=== PATIENT | female | born 1950 | race Caucasian/White ===

== ENCOUNTER 2022-12-31 22:47 | Emergency (ER) | payer MEDICARE, OTHER, SELFPAY ==
[2022-12-31 22:57] VITALS: BP 118/54; PULSE 78; RESP 18; TEMP 36.4; BMI 23.2
[2022-12-31] MEDS: 0.9 % SODIUM CHLORIDE 1000 ml 1,000 ML IV (23:32)
[2022-12-31] MEDS: ASPIRIN 81 MG TAB.CHEW 324 MG PO (23:32)
[2022-12-31 23:46] LABS: Basophils Absolute Auto 0.01 K/uL (0.00-0.30); Basophils Percent Auto 0.1 % (0.0-3.0); Eosinophils Absolute Auto 0.01 K/uL (0.00-0.50); Eosinophils Percent Auto 0.1 % (0.0-7.0); Hematocrit 41.9 % (33.0-51.0); Hemoglobin* 13.9 gm/dL (12.0-16.0); Immature Granulocytes Abs Auto 0.08 K/uL (0.00-0.30); Lymphocytes Percent Auto 14.5 % (20-44); Mean Corpuscular HGB Conc 33 gm/dL (32-36); Mean Corpuscular Hemoglobin 31 pg (26-34); Mean Corpuscular Volume 93 fL (80-100); Monocytes Percent Auto 8.4 % (0.0-11.0); Neutrophils Percent Auto 75.9 % (42.0-72.0); Platelet Count* 249 K/uL (140-440); RDW Coefficient of Variation % 11.8 % (11.5-15.5); Red Blood Count 4.51 m/uL (4.00-5.20); White Blood Count* 7.78 K/uL (4.50-11.00)
[2022-12-31 23:51] LABS: Slide Review Reflex No
[2023-01-01] VITALS (10 sets, daily range): BP systolic 135–166; BP diastolic 58–95; PULSE 63–71; RESP 18; O2SAT 96–98
[2023-01-01] LABS: Chloride* 98 mmol/L (96-114); Potassium* 4.1 mmol/L (3.6-5.1); Sodium* 133 mmol/L (135-149)
[2023-01-01 00:03] LABS: Blood Urea Nitrogen* 17 mg/dL (7-30); Carbon Dioxide* 24 mmol/L (20-32); Creatinine* 0.6 mg/dL (0.5-1.5); Est. Creatinine Clearance* 43.91; Estimated Glomerular Filt Rate 95 ml/min; Glucose* 150 mg/dL (60-115); INR 0.96 (0.91-1.10); Partial Thromboplastin Time* 27 Seconds (23-33); Prothrombin Time 13.4 Seconds
[2023-01-01 00:04] LABS: Calcium* 9.8 mg/dL (8.4-10.6)
[2023-01-01 00:15] LABS: NT Pro B Type NatriureticPept* 214 pg/mL
--- NOTE | 2023-01-01 00:23 | PC.NURSE ---
pt needs to urinate. Ambulate to BR with steady gait. Void without diff.
[2023-01-01 00:25] LABS: PCR FLU A Negative PCR FLU A (Negative); PCR FLU B Negative PCR FLU B (Negative); PCR RSV Negative PCR RSV (Negative)
--- NOTE | 2023-01-01 00:32 | PC.NURSE ---
Wang [phone]. Pt temporary tx to D1.
[2023-01-01 00:38] LABS: SARS PCR* Negative SARS-CoV-2 (Negative)
[2023-01-01 00:41] LABS: Appearance Urine Clear (Clear); Bilirubin Urine Negative (Negative); Blood Urine 1+ (Negative); Color Urine Yellow (Yellow); Glucose Urine Negative (Negative); Ketones Urine Negative (Negative); Leukocyte Esterase Urine Trace (Negative); Nitrite Urine Negative (Negative); Protein Urine Negative (Negative); Urobilinogen Urine 0.2 (0.2-1.0)
[2023-01-01 00:55] LABS: Bacteria Urine Few; RBC Urine 0-2 (0-2); Squamous Epithelial Cell Urine Few (None-Few); WBC Urine 0-2 (0-5)
--- NOTE | 2023-01-01 01:25 | ED.SYNCOPE ---
HPI - Syncope General Date Seen: 01/01/23 Chief Complaint: Syncope/Fainted Stated Complaint: near syncope Time Seen by Provider: 12/31/22 22:52 Source: patient and family Mode of arrival: ambulatory Limitations: no limitations History of Present Illness HPI narrative: The patient is a 72-year-old female who looks younger than the stated age, she presents here with the syncopal episode this morning, she got a bed started walking, and then fell to the ground, she was out for approximately 30 seconds to a minute, attended by her , she came back around and she was able to get up by herself. She laid around today drink a lot of fluids, but still feels kind of weak/fatigue. Feeling similar to that without the actual syncopal episode occurred tonight again when she stood up and she thought it would be prudent that they should be seen. She does not have a history of previous syncopal episodes, she denies any chest pain shortness of breath feeling that her heart races, with this, she has had no fevers chills or sweats diarrhea abdominal pain coughing wheezing leg swelling, or headaches numbness and tingling or weakness. Brought in tonight for the evaluation of these issues. Denies a history of alcohol or drug use. Does have a history of a previous cardiac stent place greater than 20 years ago, right-sided mastectomy for breast cancer. Here tonight with her . complaint: loss of consciousness, almost passed out and collapsed Prodromal symptoms: none Witnessed: No Related Data Allergies Allergy/AdvReac Type Severity Reaction Status Date / Time morphine Allergy Unknown Verified 12/31/22 23:05 Review of Systems Status of ROS: Reports: 10 or more systems reviewed and unremarkable except as noted in History and below [facility] Medical History Cancer ?C80.1 - Malignant (primary) neoplasm, unspecified (ICD-10) Social History Smoking Status: Never smoker How often do you have a drink containing alcohol: never AUDIT-C Alcohol total score: 0 Non-prescribed substance use: denies use Exam Narrative: Exam Narrative: She is seen in room 8 with her , she appears to be in no apparent distress, her vital signs are normal, she is nontoxic her pupils are equal round reactive to light there is no scleral icterus or redness TMs are normal oropharynx is normal there is no adenopathy anterior or posterior change, neck is supple full range of motion with absence of meningismus is noted. Carotid upstrokes in JVP are normal chest is clear bilaterally with no wheezing crackles noted no signs of respiratory distress heart sounds are normal, with no clicks murmurs or gallops. Her abdomen is soft there is no guarding no organomegaly, no tenderness normal bowel sounds pelvis normal stable. She moves all extremities independently and well with normal power in upper lower extremities symmetrical right versus left, cranial nerves 3-12 are normal. Const: Vital Signs, click to edit/add: Vital Signs - 24 hr 12/31/22 22:57 01/01/23 00:05 01/01/23 02:27 Temperature 97.5 F L Pulse Rate Pulse Rate [Pulse Oximeter] 78 Pulse Rate [orthos tatic lying Right Pulse Oximeter] Pulse Rate [orthos tatic sitting] Pulse Rate [orthos tatic standing Rig ht Pulse Oximeter] Respiratory Rate 18 18 Blood Pressure Blood Pressure [Le ft Upper Arm] 118/54 L 161/86 H 166/58 H Blood Pressure [or thostatic lying] Blood Pressure [or thostatic sitting Left Arm] Blood Pressure [or thostatic standing ] Pulse Oximetry 97 Oxygen Delivery Me thod Room Air Room Air 01/01/23 02:29 01/01/23 02:30 01/01/23 02:56 Temperature Pulse Rate 68 68 71 Pulse Rate [Pulse Oximeter] Pulse Rate [orthos tatic lying Right Pulse Oximeter] Pulse Rate [orthos tatic sitting] Pulse Rate [orthos tatic standing Rig ht Pulse Oximeter] Respiratory Rate 18 Blood Pressure 156/88 H Blood Pressure [Le ft Upper Arm] Blood Pressure [or thostatic lying] Blood Pressure [or thostatic sitting Left Arm] Blood Pressure [or thostatic standing ] Pulse Oximetry 97 97 97 Oxygen Delivery Me thod 01/01/23 02:59 01/01/23 03:00 01/01/23 03:00 Temperature Pulse Rate 68 68 Pulse Rate [Pulse Oximeter] Pulse Rate [orthos tatic lying Right Pulse Oximeter] 65 Pulse Rate [orthos tatic sitting] 71 Pulse Rate [orthos tatic standing Rig ht Pulse Oximeter] 71 Respiratory Rate 18 Blood Pressure 141/90 H 135/86 Blood Pressure [Le ft Upper Arm] Blood Pressure [or thostatic lying] 156/88 H Blood Pressure [or thostatic sitting Left Arm] 141/90 H Blood Pressure [or thostatic standing ] 135/86 Pulse Oximetry 98 98 Oxygen Delivery Me thod 01/01/23 03:01 01/01/23 03:30 01/01/23 03:32 Temperature Pulse Rate 65 66 63 Pulse Rate [Pulse Oximeter] Pulse Rate [orthos tatic lying Right Pulse Oximeter] Pulse Rate [orthos tatic sitting] Pulse Rate [orthos tatic standing Rig ht Pulse Oximeter] Respiratory Rate Blood Pressure 158/95 H Blood Pressure [Le ft Upper Arm] Blood Pressure [or thostatic lying] Blood Pressure [or thostatic sitting Left Arm] Blood Pressure [or thostatic standing ] Pulse Oximetry 96 97 97 Oxygen Delivery Me thod Documenting provider has reviewed patient's vital signs: yes Course Reevaluation(s) Time of Reevaluation #1: 02:32 Reevaluation #1: Patient returned from [place], she remains asymptomatic, she was up walking around before she left, urinate, and felt good. My review of the CT chest, along with a CT head shows no acute findings, waiting radiological over-read. Laboratory work is reassuring, with a normal troponin, given the fact she had a syncopal episode in the a.m., 12 hours since, and she is asymptomatic with a normal EKG. This effectively rules out myocardial ischemia and infarction D-dimer was normal, in the setting of a normal chest CT. Remainder of her laboratory tests were normal. I know if she has caught some sort of a virus or bug, I think watchful waiting will be in order, returning if worsening signs and symptoms. Vital Signs Vital signs: Initial Vital Signs Temperature 97.5 F L 12/31/22 22:57 Temperature Source Temporal Artery Scan 12/31/22 22:57 Pulse Rate 78 12/31/22 22:57 Respiratory Rate 18 12/31/22 22:57 Blood Pressure 118/54 L 12/31/22 22:57 Blood Pressure Mean 75 12/31/22 22:57 Oxygen Delivery Method Room Air 12/31/22 22:57 Vital Signs Temperature 97.5 F L 12/31/22 22:57 Pulse Rate 78 12/31/22 22:57 Respiratory Rate 18 12/31/22 22:57 Blood Pressure 118/54 L 12/31/22 22:57 Oxygen Delivery Method Room Air 12/31/22 22:57 Temperature 97.5 F L 12/31/22 22:57 Pulse Rate 63 01/01/23 03:32 Respiratory Rate 18 01/01/23 03:00 Blood Pressure 158/95 H 01/01/23 03:32 Pulse Oximetry 97 01/01/23 03:32 Oxygen Delivery Method Room Air 01/01/23 02:27 MDM - Syncope MDM Narrative Medical decision making narrative: Life-threatening differential diagnosis considered include: Cardiac arrhythmia, acute blood loss, and intracranial bleed. Other differential diagnosis include but are not limited to vasovagal syncope, orthostatic syncope, seizure, as well as other etiologies Medical Records Attestation: I reviewed the patient's medical records. Lab Data Attestation: I reviewed the patient's lab results. Labs: Lab Results 12/31/22 12/31/22 Range/Units 23:27 23:28 WBC 7.78 (4.50-11.00) K/uL RBC 4.51 (4.00-5.20) m/uL Hgb 13.9 (12.0-16.0) gm/dL Hct 41.9 (33.0-51.0) % MCV 93 (80-100) fL MCH 31 (26-34) pg MCHC 33 (32-36) gm/dL RDW Coeff of Mabel 11.8 (11.5-15.5) % Plt Count 249 (140-440) K/uL Neut % (Auto) 75.9 H (42.0-72.0) % Lymph % (Auto) 14.5 L (20-44) % [place] % (Auto) 8.4 (0.0-11.0) % Eos % (Auto) 0.1 (0.0-7.0) % Baso % (Auto) 0.1 (0.0-3.0) % Neut # (Auto) 5.90 (1.7-7.0) K/uL Lymph # (Auto) 1.10 (0.90-2.90) K/uL [place] # (Auto) 0.70 (0.00-0.90) K/UL Eos # (Auto) 0.01 (0.00-0.50) K/uL Baso # (Auto) 0.01 (0.00-0.30) K/uL INR 0.96 (0.91-1.10) APTT 27 (23-33) Seconds D-Dimer Quant (PE/DVT) 0.40 (0.00-0.50) ug/ml Sodium 133 L (135-149) mmol/L Potassium 4.1 (3.6-5.1) mmol/L Chloride 98 (96-114) mmol/L Carbon Dioxide 24 (20-32) mmol/L BUN 17 (7-30) mg/dL Creatinine 0.6 (0.5-1.5) mg/dL Estimated Creat Clear 43.91 Estimated GFR 95 ml/min Glucose 150 H (60-115) mg/dL Calcium 9.8 (8.4-10.6) mg/dL NT-Pro-B Natriuret Pep 214 pg/mL Urine Color Yellow (Yellow) Urine Appearance Clear (Clear) Urine pH 7.0 (5.0-8.5) Ur Specific [place] 1.010 (1.000-1.030) Urine Protein Negative (Negative) Urine Glucose (UA) Negative (Negative) Urine Ketones Negative (Negative) Urine Blood 1+ A (Negative) Urine Nitrite Negative (Negative) Urine Bilirubin Negative (Negative) Urine Urobilinogen 0.2 (0.2-1.0) Ur Leukocyte Esterase Trace A (Negative) Urine RBC 0-2 (0-2) Urine WBC 0-2 (0-5) Ur Squamous Epith Cells Few (None-Few) Urine Bacteria Few A (None) SARS-CoV-2 (PCR) Negative SARS-CoV-2 (Negative) Influenza Type A (PCR) Negative PCR FLU A (Negative) Influenza Type B (PCR) Negative PCR FLU B (Negative) RSV (PCR) Negative PCR RSV (Negative) POC Troponin I 0.00 L (0.01-0.04) ng/ml Imaging Data CT scan - chest: Attestation: I have reviewed the pertinent imaging results. My impression: Given the history of the fall, in the thought that she may have hit her head we will order a head CT and a chest CT with IV contrast to rule out a PE, unfortunately our CT scanner broke during this time. We have to transfer the patient to [place], for head CT and a chest CT. I discussed with the patient and they are in agreement this will be done by ambulance. When she gets back I will do an ultrasound of her aorta abdominal the rule out any dilatation. ECG Data Attestation: I personally reviewed and interpreted this ECG as follows: ECG interpretation date: 12/31/22 Interpretation: Normal sinus rhythm, ventricular rate 80, some mild artifact but no appreciable ST wave changes, Discharge Plan Discharge Clinical Impression: Fatigue, Syncope Patient Disposition: Home w/ Parent or Adult Condition: Stable Instructions: Syncope (DC), Near Syncope (ED), Fatigue (ED), Syncope in Older Adults (ED) Additional Instructions: Home rest fluids, return as needed, I would change positions very slowly, to avoid having a syncopal episode. Hydration, return if chest pain shortness of breath recurrent episodes. The CT showed some mild thickening of the stomach. The Radiologist suggests follow up with your primary care doctor and consider an EGD. There is a thyroid nodule and they suggest an ultrasound. This may also be ordered by your primary care doc. Activity Level: Light activity and Up with assist Follow Up/Referrals: Provider,Not a Local [Primary Care Provider] - Stand Alone Forms: [facility] Info Instructions Procedures Ultrasound Aorta exam #1: Anatomical areas examined: abdominal aorta to bifurcation Indications: other (Syncope) Exam type: limited retroperitoneal ultrasound Findings: maximum abdominal aorta (cm) (2.9) Impression: negative exam Descriptions/Findings: Negative aortic ultrasound, images saved, no evidence of aneurysmal disease.
--- NOTE | 2023-01-01 02:19 | PC.NURSE ---
Pt return from D1. Ambulate to BR with steady gait.
--- NOTE | 2023-01-01 03:38 | ED.NURSE ---
results from CT chest and head printed from [facility] and given to MD Rey.
== END 2023-01-01 03:49 | disposition home or self-care (01) ==
PROVIDERS: Emergency Provider Family Medicine
DX: R55 Syncope and collapse (principal); R53.83 Other fatigue
CPT/HCPCS: 36415; 76705; 80048; 81001; 83880; 84484; 85025; 85379; 85610; 85730; 87086; 87631; 93005; 99284; A9270; J7030

== ENCOUNTER 2023-01-01 00:28 | Outpatient (CLI) | payer MEDICARE, OTHER, SELFPAY | END 2023-01-01 00:29 | disposition home or self-care (01) | LOC: AMB 13:25 | PROVIDERS: Visit Provider Family Medicine | DX: R55 Syncope and collapse (principal) ==

== ENCOUNTER 2023-08-28 10:11 | Emergency (ER) | payer MEDICARE, OTHER, SELFPAY ==
[2023-08-28 10:16] VITALS: BP 146/79; PULSE 104; RESP 18; TEMP 36.5; O2SAT 99; BMI 23.3
[2023-08-28 12:01] LABS: Basophils Absolute Auto 0.01 K/uL (0.00-0.30); Basophils Percent Auto 0.2 % (0.0-3.0); Eosinophils Absolute Auto 0.02 K/uL (0.00-0.50); Eosinophils Percent Auto 0.4 % (0.0-7.0); Hematocrit 41.3 % (33.0-51.0); Hemoglobin* 13.5 gm/dL (12.0-16.0); Immature Granulocytes Abs Auto 0.01 K/uL (0.00-0.30); Immature Granulocytes Pct Auto 0.2 %; Lymphocytes Percent Auto 11.1 % (20-44); Mean Corpuscular HGB Conc 33 gm/dL (32-36); Mean Corpuscular Hemoglobin 31 pg (26-34); Mean Corpuscular Volume 95 fL (80-100); Monocytes Percent Auto 8.2 % (0.0-11.0); Neutrophils Percent Auto 79.9 % (42.0-72.0); Platelet Count* 216 K/uL (140-440); RDW Coefficient of Variation % 12.2 % (11.5-15.5); Red Blood Count 4.33 m/uL (4.00-5.20); White Blood Count* 5.48 K/uL (4.50-11.00)
[2023-08-28 12:05] LABS: Slide Review Reflex No
--- NOTE | 2023-08-28 12:08 | ED.GENADULT ---
HPI - General Adult General Date Seen: 08/28/23 Chief complaint: Back Injury/Pain Stated complaint: Back pain, tingling/numbness in limbs Time Seen by Provider: 08/28/23 11:23 Source: patient, RN notes reviewed and old records reviewed Mode of arrival: ambulatory Limitations: no limitations History of Present Illness HPI narrative: Patient is a 72-year-old woman here at the recommendation of the nurse line for whole-body tingling associated with chronic back pain. She tells me that she had a fall about a year ago, she has been having problems with low back pain primarily in the left lumbar/SI area since that time. She took meloxicam for a while, took a break and then about a month ago started taking the meloxicam again. Two days ago she stopped taking it because she says she was getting bad dreams from it. She does not take any other meds pain medications. For the past couple of days she has had paresthesias in her entire body, she says they are most predominant in her legs but she feels them in her arms and torso as well. She does not have any true numbness. She specifically denies any altered sensation in the perineum or perianal area. She called the nurse line, and was advised to come to the emergency department. She does not have any focal weakness. She does not have any urinary retention or fecal incontinence. She did have 1 episode of urinary incontinence last week overnight. She has not had fevers, night sweats, unexpected weight loss. She generally gets all of her medical care in [place], but they have a town house in [place] and so she is in [place] for right now. Her last MRI was in January/here, she says that she has bulging discs in is on the wait list for an injection in September. Related Data Home Medications Medication Instructions Recorded Confirmed atorvastatin 20 mg tablet 20 mg PO QPM 08/28/23 08/28/23 fluoxetine 10 mg capsule 10 mg PO DAILY 08/28/23 08/28/23 fluoxetine 20 mg capsule 20 mg PO DAILY 08/28/23 08/28/23 latanoprost 0.005 % eye drops 1 drp ophthalmic (eye) QPM 08/28/23 08/28/23 meloxicam 15 mg tablet 15 mg PO DAILY 08/28/23 08/28/23 vit C 250 mg-vit E 90 mg-zinc 40 1 tab PO BID 08/28/23 08/28/23 mg-copper 1 [id number] capsule (PreserVision AREDS-2) Allergies Allergy/AdvReac Type Severity Reaction Status Date / Time morphine Allergy Unknown Verified 08/28/23 10:23 Review of Systems Status of ROS: Reports: 6 or more systems reviewed and unremarkable except as noted in History and below [facility] Medical History Cancer ?C80.1 - Malignant (primary) neoplasm, unspecified (ICD-10) Social History Smoking Status: Never smoker Do you use any of these nicotine containing products: None How often do you have a drink containing alcohol: never How often do you have six or more drinks on one occasion: Never AUDIT-C Alcohol total score: 0 Non-prescribed substance use: denies use Exam Narrative: Exam Narrative: Vital signs as noted above. In general, an alert, well-appearing patient. Head: Normocephalic, atraumatic. Eyes: Pupils are equal reactive. Extraocular movements are full. Conjunctivae are normal. ENT: Mucous membranes are moist. Throat is normal. Neck: Supple without lymphadenopathy. Heart: Regular rate and rhythm. No murmur or rub. Lungs: Clear bilaterally. No increased work of breathing, crackles or wheezes. Abdomen: Soft and nontender. No organomegaly. Back: Nontender to palpation. Extremities: Well perfused. No edema. No calf tenderness. Pulses intact. Neurologic: Patient is alert and oriented to person and place. Speech is fluent. Face is symmetric. Moves all extremities equally. Strength is 5 of 5 in upper and lower extremities. Sensation is intact to light touch. Affect: Normal. Skin: Warm and dry. Well perfused. Const: Vital Signs, click to edit/add: Vital Signs - 24 hr 08/28/23 10:16 08/28/23 12:16 Temperature 97.7 F Pulse Rate [Pulse Oximeter] 104 H 70 Respiratory Rate 18 18 Blood Pressure [Ri ght Upper Arm] 146/79 H 147/86 H Pulse Oximetry 99 97 Oxygen Delivery Me thod Room Air Room Air Course Course ED Course: Overall, I do not see any red flags suggesting she needs emergent imaging of her lumbar spine. She has whole body paresthesias which does not sound like something that I would attribute to low back pain. She does not have any symptoms suggestive of cauda equinus syndrome. Her neurologic exam is normal. I did recommend we check a few basic labs and make sure that her body paresthesias are not related to some other cause such as electrolyte abnormalities. Will check a COVID swab as well. She declines need for anything for pain right now. Labs here are normal, white blood cell count is 5.5, hemoglobin 13.5. Electrolytes, BUN creatinine all normal, LFTs unremarkable. CRP is less than 0.5, COVID negative. She feels reassured by all this. She does acknowledge significant anxiety about her back and wonders if that may be contributing to her symptoms. Certainly a possibility. Discussed with her that I think a trial of prednisone is reasonable, would have her follow up with primary care if not improving or if other concerns develop. For more serious symptoms such as fecal incontinence, urinary retention, fevers or focal weakness return to the emergency department. Vital Signs Vital signs: Initial Vital Signs Temperature 97.7 F 08/28/23 10:16 Temperature Source Temporal Artery Scan 08/28/23 10:16 Pulse Rate 104 H 08/28/23 10:16 Respiratory Rate 18 08/28/23 10:16 Blood Pressure 146/79 H 08/28/23 10:16 Blood Pressure Mean 101 08/28/23 10:16 Blood Pressure Position Sitting 08/28/23 10:16 Pulse Oximetry 99 08/28/23 10:16 Oxygen Delivery Method Room Air 08/28/23 10:16 Vital Signs Temperature 97.7 F 08/28/23 10:16 Pulse Rate 104 H 08/28/23 10:16 Respiratory Rate 18 08/28/23 10:16 Blood Pressure 146/79 H 08/28/23 10:16 Pulse Oximetry 99 08/28/23 10:16 Oxygen Delivery Method Room Air 08/28/23 10:16 Temperature 97.7 F 08/28/23 10:16 Pulse Rate 70 08/28/23 12:16 Respiratory Rate 18 08/28/23 12:16 Blood Pressure 147/86 H 08/28/23 12:16 Pulse Oximetry 97 08/28/23 12:16 Oxygen Delivery Method Room Air 08/28/23 12:16 Medical Decision Making Lab Data Labs: Lab Results 08/28/23 08/28/23 Range/Units 11:44 11:45 WBC 5.48 (4.50-11.00) K/uL RBC 4.33 (4.00-5.20) m/uL Hgb 13.5 (12.0-16.0) gm/dL Hct 41.3 (33.0-51.0) % MCV 95 (80-100) fL MCH 31 (26-34) pg MCHC 33 (32-36) gm/dL RDW Coeff of Mabel 12.2 (11.5-15.5) % Plt Count 216 (140-440) K/uL Neut % (Auto) 79.9 H (42.0-72.0) % Lymph % (Auto) 11.1 L (20-44) % [place] % (Auto) 8.2 (0.0-11.0) % Eos % (Auto) 0.4 (0.0-7.0) % Baso % (Auto) 0.2 (0.0-3.0) % Neut # (Auto) 4.40 (1.7-7.0) K/uL Lymph # (Auto) 0.60 L (0.90-2.90) K/uL [place] # (Auto) 0.40 (0.00-0.90) K/UL Eos # (Auto) 0.02 (0.00-0.50) K/uL Baso # (Auto) 0.01 (0.00-0.30) K/uL Abs Immat Gran (auto) 0.01 (0.00-0.30) K/uL Imm/Tot Granulo (auto) 0.2 % Sodium 137 (135-149) mmol/L Potassium 4.6 (3.6-5.1) mmol/L Chloride 99 (96-114) mmol/L Carbon Dioxide 30 (20-32) mmol/L Anion Gap 8 (7-15) mEq/L BUN 22 (7-30) mg/dL Creatinine 0.7 (0.5-1.5) mg/dL Estimated Creat Clear 45.76 Estimated GFR 92 ml/min Glucose 105 (60-115) mg/dL Calcium 9.9 (8.4-10.6) mg/dL Total Bilirubin 1.2 (0.1-1.5) mg/dL Direct Bilirubin 0.1 (0.0-0.5) mg/dL AST 29 (12-35) U/L ALT 23 (4-35) U/L Alkaline Phosphatase 83 (40-150) U/L C-Reactive Protein < 0.5 L (0.5-1.0) mg/dL Total Protein 7.9 (6.0-8.3) g/dL Albumin 4.7 (3.3-5.0) g/dL SARS-CoV-2 (PCR) Negative SARS-CoV-2 (Negative) Influenza Type A (PCR) Negative PCR FLU A (Negative) Influenza Type B (PCR) Negative PCR FLU B (Negative) RSV (PCR) Negative PCR RSV (Negative) Discharge Plan Discharge Clinical Impression: Complaint of paresthesia, Chronic low back pain Patient Disposition: Home, Self-Care Condition: Stable Instructions: Paresthesia (ED) Additional Instructions: Continue Tylenol. Prednisone as follows: 3 tablets daily for 3 days followed by 2 tablets daily for 3 days then 1 tablet daily for 3 days. Primary care follow-up for persistent symptoms. Return for acute worsening or new changes such as urinary retention, fecal incontinence, focal weakness, fevers. Prescriptions: No Action latanoprost 0.005 % drops 1 drp ophthalmic (eye) QPM atorvastatin 20 mg tablet 20 mg PO QPM meloxicam 15 mg tablet 15 mg PO DAILY fluoxetine 10 mg capsule 10 mg PO DAILY fluoxetine 20 mg capsule 20 mg PO DAILY PreserVision AREDS-2 250-90-40-1 mg capsule 1 tab PO BID Follow Up/Referrals: Provider,Not a Local [Primary Care Provider] - Stand Alone Forms: [facility] Info Instructions
[2023-08-28 12:11] LABS: Albumin* 4.7 g/dL (3.3-5.0); Chloride* 99 mmol/L (96-114)
[2023-08-28 12:12] LABS: Potassium* 4.6 mmol/L (3.6-5.1); Sodium* 137 mmol/L (135-149)
[2023-08-28 12:14] LABS: Creatinine* 0.7 mg/dL (0.5-1.5); Est. Creatinine Clearance* 45.76; Estimated Glomerular Filt Rate 92 ml/min
[2023-08-28 12:15] LABS: Alanine Aminotransferase* 23 U/L (4-35); Alkaline Phosphatase* 83 U/L (40-150); Anion Gap 8 mEq/L (7-15); Aspartate Amino Transferase* 29 U/L (12-35); Bilirubin Direct* 0.1 mg/dL (0.0-0.5); Bilirubin Total* 1.2 mg/dL (0.1-1.5); Blood Urea Nitrogen* 22 mg/dL (7-30); Calcium* 9.9 mg/dL (8.4-10.6); Carbon Dioxide* 30 mmol/L (20-32); Glucose* 105 mg/dL (60-115); Total Protein* 7.9 g/dL (6.0-8.3)
[2023-08-28 12:16] VITALS: BP 147/86; PULSE 70; RESP 18; O2SAT 97
[2023-08-28 12:20] LABS: C Reactive Protein* < 0.5 mg/dL (0.5-1.0)
[2023-08-28 12:29] LABS: PCR FLU A Negative PCR FLU A (Negative); PCR FLU B Negative PCR FLU B (Negative); PCR RSV Negative PCR RSV (Negative); SARS PCR* Negative SARS-CoV-2 (Negative)
== END 2023-08-28 12:52 | disposition home or self-care (01) ==
PROVIDERS: Emergency Provider Emergency Medicine
DX: M54.50 Low back pain, unspecified (principal); R20.2 Paresthesia of skin
CPT/HCPCS: 36415; 80048; 80076; 85025; 86140; 87631; 99283; 99284